=== PATIENT | male | born 1970 | race American Indian/Alaskan Native ===

== ENCOUNTER 2018-10-18 11:43 | Emergency (ER) | payer OTHER ==
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
[2018-10-18] MEDS ORDERED: CATAPRES PO ONE (12:58)
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
[2018-10-18 13:17] VITALS: BP 188/95
== END 2018-10-18 13:59 | disposition home or self-care (01) ==
LOC: ED 11:43
DX: S46.912A Strain of unspecified muscle, fascia and tendon at shoulder and upper arm level, left arm, initial encounter (principal); I10 Essential (primary) hypertension; E11.9 Type 2 diabetes mellitus without complications; F17.200 Nicotine dependence, unspecified, uncomplicated; F12.10 Cannabis abuse, uncomplicated; Z79.899 Other long term (current) drug therapy; V89.2XXA Person injured in unspecified motor-vehicle accident, traffic, initial encounter; Y93.89 Activity, other specified; Y92.410 Unspecified street and highway as the place of occurrence of the external cause; Y99.8 Other external cause status

== ENCOUNTER 2018-10-24 04:05 | Emergency (ER) | payer OTHER ==
[2018-10-24 04:50] LABS: Basophils # (Auto) 0.1 K/mm3 (0.0-0.1); Basophils % (Auto) 1.1 % (0.0-1.8); Eosinophils # (Auto) 0.1 K/mm3 (0.0-0.4); Eosinophils % (Auto) 0.7 % (0.0-4.3); Hematocrit 45.9 % (35.5-45.6); Hemoglobin 15.3 gm/dl (11.8-15.2); Lymphocytes # (Auto) 3.4 K/mm3 (1.2-5.4); Mean Corpuscular HGB Conc 33 % (32-34); Mean Corpuscular Volume 87 fl (84-94); Monocytes # (Auto) 0.7 K/mm3 (0.0-0.8); Monocytes % (Auto) 6.6 % (0.0-7.3); Platelet Count 204 K/mm3 (140-440); Red Blood Count 5.27 M/mm3 (3.65-5.03); Red Cell Distribution Width 13.9 % (13.2-15.2)
[2018-10-24 05:15] LABS: Alanine Aminotransferase 12 units/L (7-56); Albumin 4.2 g/dL (3.9-5); BUN/Creatinine Ratio 11; Blood Urea Nitrogen 9 mg/dL (9-20); Calcium 9.6 mg/dL (8.4-10.2); Hemolysis Index 11
[2018-10-24] MEDS ORDERED: ZOFRAN IV ONE (07:13)
[2018-10-24] MEDS ORDERED: APRESOLINE IV ONE (07:13)
[2018-10-24] MEDS ORDERED: NACL 0.9% 1000 ML 1,000 ML IV ONE (07:14)
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
[2018-10-24] MEDS ORDERED: D5/0.45NS 1,000 ML IV SCH (08:00)
[2018-10-24 08:10] VITALS: BP 167/93
== END 2018-10-24 08:31 | disposition home or self-care (01) ==
LOC: ED 04:05
DX: R11.2 Nausea with vomiting, unspecified (principal); I10 Essential (primary) hypertension; E11.9 Type 2 diabetes mellitus without complications; F17.200 Nicotine dependence, unspecified, uncomplicated; Z79.899 Other long term (current) drug therapy
CPT/HCPCS: 36415; 80053; 82550; 83690; 83735; 85025; 93005; 93010; 96361; 96374; 96375; 99283; J0360; J2405; J7030

== ENCOUNTER 2018-10-31 22:01 | Inpatient (IN) | payer SELFPAY ==
--- NOTE | 2018-10-31 22:17 | Emergency Department Report ---
Blank Doc - Documentation Documentation: This is a 48-year-old male that presents with dizziness and uncontrolled HTN. This initial assessment/diagnostic orders/clinical plan/treatment(s) is/are subject to change based on patient's health status, clinical progression and re- assessment by fellow clinical providers in the ED. Further treatment and workup at subsequent clinical providers discretion. Patient/guardians urged not to elope from the ED as their condition may be serious if not clinically assessed and managed. Initial orders include: 1- Patient sent to MAIN for further evaluation and treatment 2- labs 3- EKG
[2018-10-31 23:23] LABS: Basophils # (Auto) 0.1 K/mm3 (0.0-0.1); Basophils % (Auto) 0.7 % (0.0-1.8); Eosinophils % (Auto) 0.2 % (0.0-4.3); Hematocrit 47.6 % (35.5-45.6); Hemoglobin 16.3 gm/dl (11.8-15.2); Lymphocytes # (Auto) 2.9 K/mm3 (1.2-5.4); Lymphocytes % (Auto) 28.8 % (13.4-35.0); Mean Corpuscular HGB Conc 34 % (32-34); Mean Corpuscular Volume 88 fl (84-94); Monocytes # (Auto) 0.7 K/mm3 (0.0-0.8); Monocytes % (Auto) 7.1 % (0.0-7.3); Platelet Count 228 K/mm3 (140-440); Red Blood Count 5.42 M/mm3 (3.65-5.03)
--- NOTE | 2018-10-31 23:34 | Emergency Department Report ---
ED Dizziness HPI - General Chief Complaint: Dizziness Stated Complaint: ELEVATED BLOOD PRESSURE Time Seen by Provider: 10/31/18 22:16 Source: patient, family Mode of arrival: Ambulatory Limitations: No Limitations - History of Present Illness Initial Comments: Patient is a 48-year-old male that presents to emergency with complaints of dizziness and weakness and unsteady gait and elevated blood pressure. Patient states he has been here twice in the past 2 weeks and his blood pressure is just not going down. Patient is currently on Norvasc 5 mg and hydrochlorothiazide 12.5 mg. Patient states his blood pressure comes down the dizziness gets Worse. Patient denies chest pain or shortness of breath. Patient denies blurry vision. Patient states that his gait is unsteady and ease literally having to hold onto the wall in order to walk. Patient states his legs feel weak. MD Complaint: dizziness, lightheadedness, near syncope, difficulty walking -: Sudden Description: sense of movement, "room spinning", lightheadedness, off-balance, difficulty walking, near-syncope History of Same: Yes History of Trauma: No Severity: severe Improves With: rest Worsens With: movement, position, exertion Associated Symptoms: chest pain. denies: ataxia, confusion, cough, diaphoresis, fever/chills, loss of appetite, malaise, rash, seizure, shortness of breath, syncope, weakness - Related Data Previous Rx's Medication Instructions Recorded Last Taken Type Amlodipine Besylate [Norvasc] 5 mg PO DAILY #30 tablet 10/18/18 Unknown Rx hydroCHLOROthiazide [HCTZ] 12.5 mg PO QDAY #30 capsule 10/18/18 Unknown Rx Ondansetron [Zofran Odt] 4 mg PO Q8HR PRN #20 tab.rapdis 10/24/18 Unknown Rx Promethazine [Phenergan SUPPOS] 50 mg CO Q6H PRN #30 supp.rect 10/24/18 Unknown Rx Allergies Allergy/AdvReac Type Severity Reaction Status Date / Time No Known Allergies Allergy Verified 03/30/18 10:42 ED Review of Systems ROS: Stated complaint: ELEVATED BLOOD PRESSURE Other details as noted in HPI Constitutional: weakness. denies: chills, fever Eyes: denies: eye pain, eye discharge, vision change ENT: denies: ear pain, throat pain Respiratory: denies: cough, shortness of breath, wheezing Cardiovascular: denies: chest pain, palpitations Endocrine: no symptoms reported Gastrointestinal: denies: abdominal pain, nausea, diarrhea Genitourinary: denies: urgency, dysuria Musculoskeletal: denies: back pain, joint swelling, arthralgia Skin: denies: rash, lesions Neurological: weakness. 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,sees a neurologist - Surgical History Past Surgical History?: No - Family History Family history: no significant - Social History Smoking Status: Current Every Day Smoker Substance Use Type: Alcohol, Cocaine, Marijuana - Medications Home Medications: Home Medications Medication Instructions Recorded Confirmed Last Taken Type Amlodipine Besylate [Norvasc] 5 mg PO DAILY #30 tablet 10/18/18 11/01/18 Unknown Rx hydroCHLOROthiazide [HCTZ] 12.5 mg PO QDAY #30 capsule 10/18/18 11/01/18 Unknown Rx Ondansetron [Zofran Odt] 4 mg PO Q8HR PRN #20 tab.rapdis 10/24/18 11/01/18 Unknown Rx Promethazine [Phenergan SUPPOS] 50 mg CO Q6H PRN #30 supp.rect 10/24/18 11/01/18 Unknown Rx ED Physical Exam - General Limitations: No Limitations General appearance: alert, in no apparent distress - Head Head exam: Present: atraumatic, normocephalic - Eye Eye exam: Present: normal appearance, EOMI, nystagmus - ENT ENT exam: Present: mucous membranes moist - Neck Neck exam: Present: normal inspection. Absent: tenderness, meningismus - Respiratory Respiratory exam: Present: normal lung sounds bilaterally. Absent: respiratory distress - Cardiovascular Cardiovascular Exam: Present: regular rate, normal rhythm. Absent: systolic murmur, diastolic murmur, rubs, gallop - GI/Abdominal GI/Abdominal exam: Present: soft, normal bowel sounds - Rectal Rectal exam: Present: deferred - Extremities Exam Extremities exam: Present: normal inspection - Back Exam Back exam: Present: normal inspection - Neurological Exam Neurological exam: Present: alert, oriented X3 - Psychiatric Psychiatric exam: Present: normal affect, normal mood - Skin Skin exam: Present: warm, dry, intact, normal color. Absent: rash ED Course Vital Signs 10/31/18 10/31/18 10/31/18 22:06 23:31 23:36 Temperature 98.1 F 98.2 F Pulse Rate 91 H 87 83 Respiratory 22 21 18 Rate Blood Pressure 199/120 177/95 Blood Pressure 177/95 [Left] O2 Sat by Pulse 99 98 97 Oximetry 11/01/18 11/01/18 11/01/18 00:00 00:31 01:01 Temperature Pulse Rate 81 94 H 92 H Respiratory 18 19 16 Rate Blood Pressure 178/87 178/87 178/87 Blood Pressure [Left] O2 Sat by Pulse 95 98 98 Oximetry 11/01/18 11/01/18 11/01/18 01:30 02:14 02:30 Temperature Pulse Rate 77 73 87 Respiratory 16 17 16 Rate Blood Pressure 180/89 165/93 Blood Pressure [Left] O2 Sat by Pulse 99 99 100 Oximetry 11/01/18 11/01/18 11/01/18 03:00 03:30 04:00 Temperature Pulse Rate 84 87 Respiratory 14 17 Rate Blood Pressure 169/89 155/96 160/103 Blood Pressure [Left] O2 Sat by Pulse 96 97 97 Oximetry 11/01/18 11/01/18 11/01/18 04:50 04:51 05:00 Temperature Pulse Rate 85 91 H 92 H Respiratory 16 19 Rate Blood Pressure 170/101 170/101 147/96 Blood Pressure [Left] O2 Sat by Pulse 99 Oximetry 11/01/18 11/01/18 05:11 05:21 Temperature Pulse Rate 85 Respiratory 16 15 Rate Blood Pressure 147/96 147/96 Blood Pressure [Left] O2 Sat by Pulse 99 99 Oximetry - Reevaluation(s) Reevaluation #1: Discussed all results with patient. Patient will be admitted to the hospitalist service. Patient agrees to plan of care. 11/01/18 00:49 - Consultations Consultation #1: Discussed case with neurologist. Neurologist recommends admission and MRI/MRA in the morning for the patient's dizziness to rule out any neurologic problems 11/01/18 00:48 11/01/18 01:19 Consultation #2: Hospitalist consulted for admission. Hospitalist to admit patient. Hospitalist to assume care patient. 11/01/18 01:15 ED Medical Decision Making - Lab Data Result diagrams: 10/31/18 22:58 10/31/18 22:58 - EKG Data -: EKG Interpreted by Me EKG shows normal: sinus rhythm, axis, intervals, QRS complexes, ST-T waves Rate: tachycardia - EKG Data Interpretation: [facility] - Radiology Data Radiology results: report reviewed CT HEAD WITHOUT CONTRAST INDICATION: dizziness. TECHNIQUE: All CT scans at this location are performed using CT dose reduction for ALARA by means of automated exposure control. COMPARISON: None available. FINDINGS: HEMORRHAGE: None. EXTRA-AXIAL SPACES: Normal in size and morphology for the patient's age. VENTRICULAR SYSTEM: Normal in size and morphology for the patient's age. BRAIN PARENCHYMA: No acute findings. MIDLINE SHIFT OR HERNIATION: None. ORBITS: Normal as visualized. SOFT TISSUES OF HEAD: Normal. CALVARIUM: Normal. VISUALIZED PARANASAL SINUSES AND MASTOID AIR CELLS: Clear. ADDITIONAL FINDINGS: None. IMPRESSION: 1. No acute intracranial abnormality. - Medical Decision Making Patient is a 48-year-old emergency room with complaints of dizziness, unsteady gait and weakness and elevated blood pressure. Patient admitted to the hospital service. Patient's head CT negative. Patient's labs unremarkable except for elevated blood glucose. Patient placed on a insulin drip due to the hyponatremia and elevated blood glucose. Patient given saline. Patient had abnormal neurologic finding of nystagmus and neurology consultation done in ER. - Differential Diagnosis dizziness. unsteady gait. Hypertension. Critical Care Time: Yes Critical care attestation.: If time is entered above; I have spent that time in minutes in the direct care of this critically ill patient, excluding procedure time. Critical Care Time: 45 minutes ED Disposition Clinical Impression: Weakness, Dizziness, Hyperglycemia, Noncompliance, Unsteady gait, Hyponatremia, Nystagmus Hypertension Qualifiers: Hypertension type: essential hypertension Qualified Code(s): I10 - Essential (primary) hypertension Disposition: OP ADMIT IP TO THIS HOSP Is pt being admited?: No Does the pt Need Aspirin: No Condition: Fair Time of Disposition: 01:15 - Assessment Assessment Interval: Baseline - Level of Consciousness 1a. Level of Consciousness: alert/keenly responsive - LOC Questions 1b. LOC Questions: answers both correctly - LOC Command 1c. LOC Commands: performs tasks correctly - Best Gaze 2. Best Gaze: normal - Visual 3. Visual: no visual loss - Facial Palsy 4. Facial Palsy: normal symmetrical movement - Motor Arm 5a. Motor Arm Left: no drift 5b. Motor Arm Right: no drift - Motor Leg 6a. Motor Leg Left: no drift 6b. Motor Leg Right: no drift - Limb Ataxia 7. Limb Ataxia: absent - Sensory 8. Sensory: normal - Best Language 9. Best Language: no aphasia - Dysarthria 10. Dysarthria: normal - Extinction and Inattention 11. Extinction/Inattention: no abnormality - Scoring Total Score: 0 Stroke Severity: No Stroke Symptoms
[2018-10-31 23:41] LABS: BUN/Creatinine Ratio 12; Blood Urea Nitrogen 14 mg/dL (9-20); Calcium 9.5 mg/dL (8.4-10.2); Hemolysis Index 11
[2018-11-01] MEDS ORDERED: D50W (25GM) Syringe IV PRN ×2 (00:49→02:58)
[2018-11-01] MEDS ORDERED: NACL 0.9% 1000 ML 1,000 ML IV ONE ×2 (00:49)
[2018-11-01] MEDS ORDERED: HumuLIN R 100 UNITS in NACL 0.9% 99 ML IV SCH (01:00)
[2018-11-01] MEDS ORDERED: NACL 0.9% 1000 ML 1,000 ML IV SCH (02:00)
--- NOTE | 2018-11-01 02:30 | Cat Scan Report ---
CT HEAD WITHOUT CONTRAST INDICATION: dizziness. TECHNIQUE: All CT scans at this location are performed using CT dose reduction for ALARA by means of automated e xposure control. COMPARISON: None available. FINDINGS: HEMORRHAGE: None. EXTRA-AXIAL SPACES: Normal in size and morphology for the patient's age. VENTRICULAR SYSTEM: Normal in size and morphology for the patient's age. BRAIN PARENCHYMA: No acute findings. MIDLINE SHIFT OR HERNIATION: None. ORBITS: Normal as visualized. SOFT TISSUES OF HEAD: Normal. CALVARIUM: Normal. VISUALIZED PARANASAL SINUSES AND MASTOID AIR CELLS: Clear. ADDITIONAL FINDINGS: None. IMPRESSION: 1. No acute intracranial abnormality. Signer Name: Kory Stuart MD Signed: 11/01/2018 2:26 AM Workstation Name: [id number]
[2018-11-01] MEDS: NACL 0.9% 1000 ML 1,000 ML IV SCH ×3 (03:50→23:10)
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
[2018-11-01] MEDS: APRESOLINE IV PRN ×4 (04:50→22:29)
[2018-11-01] MEDS ORDERED: PHENERGAN PR PRN (09:16)
[2018-11-01] MEDS ORDERED: ASPIRIN PO SCH (10:00)
[2018-11-01] MEDS: HumuLIN R SUB-Q SCH ×4 (10:15→22:31)
--- NOTE | 2018-11-01 10:20 | Vascular Lab Report ---
BILATERAL CAROTID DOPPLER ULTRASOUND INDICATION : ATAXIA AND DIZZINESS TECHNIQUE: Grayscale and color Doppler imaging performed through the neck. COMPARISON: None FINDINGS: Right: There is mild smooth partially calcified plaque in the right carotid bulb.. Peak systolic ve locity in the CCA is 87 cm/s with end-diastolic velocity of 81 cm/s. Peak systolic velocity in the pr oximal ICA is 76 cm/s with end-diastolic velocity of 33 cm/s. ICA to CCA ratio is less than 2. There is antegrade flow in the ECA and the vertebral artery. Left: There is mild partially calcified plaque in the left carotid bulb. Peak systolic velocity in th e CCA is 90 cm/s with end-diastolic velocity of 86 cm/s. Peak systolic velocity in the proximal ICA i s 70 cm/s with end-diastolic velocity of 26 cm/s. ICA to CCA ratio is less than 2. There is antegrade flow in the ECA and the vertebral artery. IMPRESSION: No hemodynamically significant stenosis by NASCET criteria. Signer Name: Francisco Aquino Jr, MD Signed: 11/01/2018 10:16 AM Workstation Name: [id number]
--- NOTE | 2018-11-01 12:46 | Magnetic Resonance Report ---
MRI BRAIN 11/01/2018 INDICATION / CLINICAL INFORMATION: ATAXIA AND DIZINESS. TECHNIQUE: Multiplanar, multisequence MR images of the brain were obtained. COMPARISON: None available. FINDINGS: BRAIN / INTRACRANIAL CONTENTS: Unenhanced MR images of the brain were obtained. There are a few punctate foci of increased diffusion weighted signal present in the right inferior ce rebellar cortex, with some subtle associated decreased ADC signal and visible associated signal pereira e on the FLAIR sequence. Appearance suggests small foci of recent or acute ischemic change in part of the distribution of the right posterior inferior cerebellar artery. No other foci or areas of abnormal diffusion weighted signal are present. Ventricles and sulci are normal in size and shape. There is no evidence of hemorrhage or mass. There are no abnormal extra-axial fluid collections. EXTRACRANIAL: Unremarkable CRANIOCERVICAL JUNCTION: No significant abnormality. VASCULAR FLOW-VOIDS: No significant abnormality. IMPRESSION: Patchy acute/recent ischemic changes in right inferior cerebellar cortex. Otherwise negative exam. Signer Name: Bryn Mcclendon MD Signed: 11/01/2018 12:42 PM Workstation Name: [id number]
--- NOTE | 2018-11-01 12:51 | Magnetic Resonance Report ---
MRA NECK 11/01/2018 INDICATION / CLINICAL INFORMATION: ATAXIA AND DIZZINESS. TECHNIQUE: Routine unenhanced MRA of the neck are performed. 3-D/MIP reformats postprocessed. Percentage stenosi s is determined by direct quantitative measurements of distal internal carotid artery diameter compar ed with normal reference segments or by criteria similar to NASCET where applicable. COMPARISON: None available. FINDINGS: Unenhanced MR angiographic images of the neck were obtained. 3D/MIP reformats were post-processed. Carotid bifurcations: Common carotid arteries: No significant abnormality. Cervical internal carotid arteries: No significant abnormality. Cervical vertebral arteries: The left vertebral artery is relatively hypoplastic, consistent with nor mal anatomic variation. Visible aortic arch: Not included as part of this exam. IMPRESSION: No significant abnormality. Signer Name: Bryn Mcclendon MD Signed: 11/01/2018 12:47 PM Workstation Name: [id number]
--- NOTE | 2018-11-01 12:54 | Magnetic Resonance Report ---
MRA HEAD 11/01/2018 INDICATION / CLINICAL INFORMATION: ATAXIA AND DIZZINESS. TECHNIQUE: Routine MRA of the head is performed. 3-D/MIP reformats postprocessed. COMPARISON: None available. FINDINGS: MRA HEAD: Intracranial internal carotid arteries: Atherosclerotic type irregularity is present in the distal in ternal carotid arteries at the level of the cavernous sinuses bilaterally. Anterior cerebral arteries: No significant abnormality. Middle cerebral arteries: There is some irregularity on the reconstructed images of the right middle cerebral artery trifurcation, which I suspect is artifactual. Intracranial vertebral arteries: The left distal vertebral artery is relatively hypoplastic and appea rs to end at approximately the level of the PICA origin. Basilar artery: No significant abnormality. Posterior cerebral arteries: Atherosclerotic type irregularity and narrowing is present in the proxim al aspect of the posterior cerebral arteries bilaterally. IMPRESSION: There is some evidence of intracranial atherosclerotic changes as described above. Antonieta james on details of the clinical circumstances, further evaluation with contrast-enhanced CT angiograp hy may be of benefit. Signer Name: Bryn Mcclendon MD Signed: 11/01/2018 12:50 PM Workstation Name: [id number]
[2018-11-01] MEDS: LANTUS SUB-Q SCH ×2 (12:55→22:29)
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
[2018-11-01] MEDS: TYLENOL PO PRN (17:48)
[2018-11-01] MEDS: PLAVIX PO SCH (17:49)
[2018-11-02] MEDS: TYLENOL PO PRN (00:12)
[2018-11-02] MEDS: APRESOLINE IV PRN ×4 (06:01→23:31)
[2018-11-02 06:12] LABS: Chol/HDL Ratio 4.11 %
[2018-11-02] MEDS: HumuLIN R SUB-Q SCH ×4 (07:27→21:54)
[2018-11-02] MEDS: PLAVIX PO SCH (10:25)
[2018-11-02] MEDS: BABY ASPIRIN PO SCH (10:25)
[2018-11-02] MEDS: LANTUS SUB-Q SCH ×2 (10:28→21:55)
[2018-11-02] MEDS: NACL 0.9% 1000 ML 1,000 ML IV SCH (10:28)
[2018-11-02] MEDS ORDERED: NORMODYNE IV ONE ×2 (13:47→17:00)
[2018-11-02] MEDS ORDERED: SENOKOT S PO PRN (15:50)
[2018-11-02] MEDS ORDERED: MIRALAX 3350 PO PRN (15:50)
--- NOTE | 2018-11-02 15:50 | Progress Note ---
Assessment and Plan Assessment and plan: 48-year-old man who presented with elevated blood pressure and dizziness, he also complained of unsteady gaits, his blood pressure was not being controlled despite using his blood pressure meds at home, he thinks that one of his legs felt weak. Acute /subacute cerebella CVA Neurology input appreciated, optimize meds for secondary prevention Patient out of the window for permissive hypertension, optimize blood pressure meds goal is to reduce blood pressure by 30% -Awaiting CT angiogram head and neck as recommended by neurologist Hypertensive urgency Blood pressure management as above Type 2 diabetes with persistent hyperglycemia A1c 9.4, optimize insulins, goal glucose is 140-180 Cocaine and marijuana abuse Counseled about tobacco cessation greater than 10 minutes Preventive health management counseling performed 17 minutes X Ambulatory dysfunction PT/OT, plan to discharge her home PT DVT prophylaxis ME: SCDs History Interval history: Continues to complain of unsteady gait Review of systems Constitutional: No fevers, no malaise, no joint pains CVS: No chest pain, no orthopnea, no dyspnea on exertion, no pedal edema GI: No abdominal pain, no diarrhea, no vomiting, no constipation Respiratory: no wheezing, no coughing Hospitalist Physical - Physical exam Narrative exam: General.: Appears well, no distress, nontoxic HEENT: Moist mucous membranes, extraocular muscles intact, no lymphadenopathy Neck: supple Cardiac: S1-S2 heard Lungs: clear to auscultation bilaterally Abdomen: soft , nontender, nondistended, bowel sounds positive Extremities: no edema clubbing or cyanosis Skin: no rash or lesions Neurologic: no gross focal deficits, unsteady gait Psych: calm, and cooperative - Constitutional Vitals: Temp Pulse Resp BP Pulse Ox 98.0 F 104 H 20 187/99 100 11/02/18 12:20 11/02/18 12:20 11/02/18 12:20 11/02/18 12:20 11/02/18 12:20 Results - Labs CBC & Chem 7: 10/31/18 22:58 10/31/18 22:58 Labs: Laboratory Last Values WBC 9.9 K/mm3 (4.5-11.0) 10/31/18 22:58 RBC 5.42 M/mm3 (3.65-5.03) H 10/31/18 22:58 Hgb 16.3 gm/dl (11.8-15.2) H 10/31/18 22:58 Hct 47.6 % (35.5-45.6) H 10/31/18 22:58 MCV 88 fl (84-94) 10/31/18 22:58 MCH 30 pg (28-32) 10/31/18 22:58 MCHC 34 % (32-34) 10/31/18 22:58 RDW 14.0 % (13.2-15.2) 10/31/18 22:58 Plt Count 228 K/mm3 (140-440) 10/31/18 22:58 Lymph % (Auto) 28.8 % (13.4-35.0) 10/31/18 22:58 Haakon % (Auto) 7.1 % (0.0-7.3) 10/31/18 22:58 Eos % (Auto) 0.2 % (0.0-4.3) 10/31/18 22:58 Baso % (Auto) 0.7 % (0.0-1.8) 10/31/18 22:58 Lymph # 2.9 K/mm3 (1.2-5.4) 10/31/18 22:58 Haakon # 0.7 K/mm3 (0.0-0.8) 10/31/18 22:58 Eos # 0.0 K/mm3 (0.0-0.4) 10/31/18 22:58 Baso # 0.1 K/mm3 (0.0-0.1) 10/31/18 22:58 Seg Neutrophils % 63.2 % (40.0-70.0) 10/31/18 22:58 Seg Neutrophils # 6.3 K/mm3 (1.8-7.7) 10/31/18 22:58 Sodium 128 mmol/L (137-145) L 10/31/18 22:58 Potassium 4.7 mmol/L (3.6-5.0) 10/31/18 22:58 Chloride 89.2 mmol/L (98-107) L 10/31/18 22:58 Carbon Dioxide 22 mmol/L (22-30) 10/31/18 22:58 22 mmol/L 10/31/18 22:58 BUN 14 mg/dL (9-20) 10/31/18 22:58 1.2 mg/dL (0.8-1.5) 10/31/18 22:58 Estimated GFR > 60 ml/min 10/31/18 22:58 12 % 10/31/18 22:58 Glucose 660 mg/dL (75-100) H* 10/31/18 22:58 POC Glucose 227 (70-105) H 11/02/18 12:10 9.4 % (4-6) H 11/02/18 04:41 Calcium 9.5 mg/dL (8.4-10.2) 10/31/18 22:58 Triglycerides 127 mg/dL (2-149) 11/02/18 04:41 Cholesterol 177 mg/dL (50-199) 11/02/18 04:41 120 mg/dL (50-130) 11/02/18 04:41 43 mg/dL (40-59) 11/02/18 04:41 4.11 % 11/02/18 04:41 Active Medications - Current Medications Current Medications: Generic Name Dose Route Start Last Admin Trade Name Freq PRN Reason Stop Dose Admin Acetaminophen 650 mg 11/01/18 17:45 11/02/18 00:12 Tylenol PO 650 mg Q6H PRN Administration Pain, Mild (1-3) Aspirin 81 mg 11/02/18 10:00 11/02/18 10:25 Baby Aspirin PO 81 mg QDAY ATILIO Administration Atorvastatin Calcium 40 mg 11/01/18 22:00 11/01/18 22:29 Lipitor PO 40 mg QHS ATILIO Administration Clopidogrel Bisulfate 75 mg 11/01/18 17:00 11/02/18 10:25 Plavix PO 75 mg QDAY ATILIO Administration Dextrose 50 ml 11/01/18 02:58 D50w (25gm) Syringe IV PRN PRN Hypoglycemia Hydralazine HCl 10 mg 11/01/18 03:00 11/02/18 13:53 Apresoline IV 10 mg Q4H PRN Administration Blood Pressure Sodium Chloride 1,000 mls @ 125 mls/hr 11/01/18 04:00 11/02/18 10:28 Nacl 0.9% 1000 Ml IV 125 mls/hr DIRECT ATILIO Administration Insulin Glargine 10 units 11/01/18 12:30 11/02/18 10:28 Lantus SUB-Q 10 units BID ATILIO Administration Insulin Human Regular 0 units 07/11/19 07:30 11/02/18 15:19 Humulin R SUB-Q 3 units AC ATILIO Administration Protocol Insulin Human Regular 0 units 11/01/18 22:00 11/01/18 22:31 Humulin R SUB-Q 3 units QHS ATILIO Administration Protocol Promethazine HCl 50 mg 11/01/18 09:16 Phenergan [place] Q6H PRN Nausea Sodium Chloride 10 ml 11/01/18 16:13 Sodium Chloride Flush Syringe 10 Ml IV PRN PRN LINE FLUSH
[2018-11-02] MEDS: SODIUM CHLORIDE FLUSH SYRINGE 10 ML IV PRN ×2 (17:07→21:54)
--- NOTE | 2018-11-02 17:45 | Progress Note ---
Assessment and Plan Patient is a 48-year-old right-handed man with a history of hypertension, diabetes, history of substance abuse including cocaine and marijuana, who p/w 2- week history of imbalanced gait. He has been found to have elevated BP and glucose. According to patient's clinical findings, the patient had a right cerebellar stroke, as has been noted on MRI. The etiology of stroke is not entirely clear at this point patient has list factors, including hypertension and diabetes was uncontrolled, as well as smoking, and cocaine and marijuana use . Plan: 1. Acute/subacute cerebellar ischemic stroke: - MRI brain revealed Rt. cerebellar small strokes. - MRA brain showed possible regions of atherosclerosis - Will check CTA head and neck for further investigation of cerebrovascular disease. CTA pending. Further clinical decisions to be made based once CTA compelte. - Will check echo with bubble study. Echo pending. - LDL 120. HbA1C 9.4. Secondary prevention: - Cont. ASA 81mg daily, and Plavix 75mg daily. Will continue dual anti-platelet therapy with ASA and plavix for 90 days, after which plavix can be stopped. Discussed risks/benefits of DAPT with patient and , and they have agreed to starting these medications. - Cont. Atorvastatin 40mg daily. Discussed risks/benefits of statin therapy, and patient agreed to take statin at this time. - Telemetry monitoring while in house. - Physical therapy and occupational therapy - Speech therapy not indicated as no significant deficits that would affect swallowing at this point. - DVT PPx: recommend lovenox. 2. HTN: - Recommend target normotension. 3. DM: - Recommend target normoglycemia. 4. Cocaine and marijuana abuse: - Counselled patient regarding stopping smoking, as well as stopping cocaine and marijuana use. - Discussed with patient regarding having follow up with neurologist once discharged. - Will sign off, as I will not be covering patients over the weekend. Recommend for on-call neurologist to be consulted over the weekend for further management. - Viktor Carr MD Neurology - Patient Problems (1) Stroke Current Visit: Yes Status: Acute (2) Hyperglycemia Current Visit: Yes Status: Acute (3) Hypertension Current Visit: Yes Status: Acute Qualifiers: Hypertension type: essential hypertension Qualified Code(s): I10 - Essential (primary) hypertension (4) Unsteady gait Current Visit: Yes Status: Acute Subjective Date of service: 11/02/18 Principal diagnosis: Stroke Interval history: No acute events overnight. Patient feels that imbalance is slightly improved today. Objective - Vital Sign Vital Signs - 12hr 11/02/18 11/02/18 11/02/18 06:01 07:54 12:20 Temperature 98.6 F 98.0 F Pulse Rate 93 H 85 104 H Respiratory 18 20 Rate Blood Pressure 162/98 166/93 187/99 O2 Sat by Pulse 100 100 Oximetry 11/02/18 16:00 Temperature 98.6 F Pulse Rate 110 H Respiratory 20 Rate Blood Pressure 148/88 O2 Sat by Pulse 99 Oximetry - General Apperance Constitutional: comfortable - EENT EENT: ATNC, PERRL, mucous membranes moist, hearing intact, vision intact - Respiratory Respiratory: lungs clear, normal breath sounds, no respiratory distress - Cardiovascular Cardiovascular: regular rate, normal S1, normal S2 Extremities: no peripheral edema bilat, no clubbing, cyanosis - Gastrointestinal Gastrointestinal: normoactive bowel sounds, soft, non-tender - Integumentary Integumentary: normal - Neurologic Cranial nerve examination: PERRL, EOMI, VFF, V1/V2/V3 grossly intact, face symmetric, tongue midline, intact shoulder shrug Speech examination: intact Detailed motor examination: full strength in all luna Motor examination - right side: 5/5: biceps, triceps, host/hostess restaurant, hip flexors, knee extensors, dorsiflexion, plantarflexion Motor examination - left side: 5/5: biceps, triceps, host/hostess restaurant, hip flexors, knee extensors, dorsiflexion, plantarflexion Detailed sensory examination: intact, light touch Reflex and gait examination: other (mild imbalanced gait) Reflexes: 2+: ankle, bicep, knee, tricep Cerebellar examination: other (b/l intac to to FTN and HTS) - Musculoskeletal Musculoskeletal: no fluid collection, no pain, normal range of motion - Psychiatric Psychiatric: mood/affect appropriate, cooperative - Laboratory Findings CBC and BMP: 10/31/18 22:58 10/31/18 22:58 Abnormal Lab Findings: Abnormal Labs 10/31/18 10/31/18 11/01/18 22:58 22:58 01:34 RBC 5.42 H Hgb 16.3 H Hct 47.6 H Sodium 128 L Chloride 89.2 L Glucose 660 H* POC Glucose > 500 H Hemoglobin A1c 11/01/18 11/01/18 11/01/18 02:36 03:59 07:40 RBC Hgb Hct Sodium Chloride Glucose POC Glucose 378 H 246 H 198 H Hemoglobin A1c 11/01/18 11/01/18 11/01/18 12:56 17:14 20:55 RBC Hgb Hct Sodium Chloride Glucose POC Glucose 282 H 279 H 222 H Hemoglobin A1c 11/02/18 11/02/18 11/02/18 04:41 07:22 12:10 RBC Hgb Hct Sodium Chloride Glucose POC Glucose 170 H 227 H Hemoglobin A1c 9.4 H 11/02/18 16:05 RBC Hgb Hct Sodium Chloride Glucose POC Glucose 248 H Hemoglobin A1c
--- NOTE | 2018-11-02 21:53 | Cat Scan Report ---
CT ANGIOGRAM NECK 11/02/2018 HISTORY: Headache. Dizziness. FINDINGS: Contrast-enhanced CT angiographic images of the neck were obtained. In addition to the axia l images, sagittal and coronal reformatted images were obtained. In addition, 3 plane MIP reconstruct ions were produced. At the right bifurcation, some partially calcified atherosclerotic plaque is present. There is 10-20% narrowing in the proximal right internal carotid artery. At the left bifurcation, there is a similar pattern of atherosclerotic plaque, associated with tendon 20% narrowing. Vertebral arteries are unremarkable. 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 The aortic arch has a normal CT appearance. Soft tissue structures in the neck are unremarkable. IMPRESSION: No evidence of significant or measurable carotid bifurcation stenosis. NASCET like criteria were used in this evaluation. All CT scans at this location are performed using dose reduction to ALARA by means of automated expos ure control. Signer Name: Bryn Mcclendon MD Signed: 11/02/2018 9:48 PM Workstation Name: [id number]
--- NOTE | 2018-11-02 21:56 | Cat Scan Report ---
CT ANGIOGRAM BRAIN 11/02/2018 HISTORY: Dizziness. FINDINGS: Contrast-enhanced CT angiographic images of the intracranial circulation were obtained. In addition to the axial images, sagittal and coronal reformatted images were obtained. In addition, 3 p simone MIP reconstructions were produced. There is prominent atherosclerotic vascular calcification irregularity along the course of the distal internal carotid arteries at the level of the cavernous sinuses. Segmental stenoses of this portion of the internal carotid arteries is present bilaterally, and appears to be slightly more pronounced s ignificant on the left than on the right. Mild atherosclerotic irregularity is noted along the course of the cerebral arteries bilaterally. The left distal vertebral artery is hypoplastic and appears to end at the level of PICA. The right di stal vertebral artery has atherosclerotic type irregularity at the near the vertebrobasilar junction, with focal moderate stenoses. The basilar artery itself is relatively hypoplastic on a developmental basis. Dural venous structures are well opacified. IMPRESSION: Prominent intracranial atherosclerotic changes, with prominent stenoses of the distal int ernal carotid arteries in the cavernous sinus level. All CT scans at this location are performed using dose reduction to ALARA by means of automated expos ure control. Signer Name: Bryn Mcclendon MD Signed: 11/02/2018 9:51 PM Workstation Name: [id number]
[2018-11-03] MEDS: TYLENOL PO PRN ×2 (04:35→14:30)
[2018-11-03] MEDS: HumuLIN R SUB-Q SCH ×4 (08:30→21:57)
[2018-11-03] MEDS: PLAVIX PO SCH (10:16)
[2018-11-03] MEDS: BABY ASPIRIN PO SCH (10:16)
[2018-11-03] MEDS: APRESOLINE IV PRN ×3 (10:17→22:02)
--- NOTE | 2018-11-03 15:11 | Progress Note ---
Assessment and Plan Assessment and plan: 48-year-old man who presented with elevated blood pressure and dizziness, he also complained of unsteady gaits, his blood pressure was not being controlled despite using his blood pressure meds at home, he thinks that one of his legs felt weak. Acute /subacute cerebella CVA Neurology input appreciated, optimize meds for secondary prevention -CT angiogram shows ICA stenosis, vascular surgery consult, echo shows slightly reduced EF of 45%, but no septal defect and patient will need outpatient follow- up with cardiology, as will need a 30 day monitor her neurologist - Hypertensive urgency Optimize BP meds Type 2 diabetes with persistent hyperglycemia A1c 9.4, optimize insulins, goal glucose is 140-180 Cocaine and marijuana abuse Counseled about tobacco cessation greater than 10 minutes Preventive health management counseling performed 17 minutes X Ambulatory dysfunction PT/OT, plan to discharge her home PT DVT prophylaxis ME: SCDs History Interval history: Continues to complain of unsteady gait Review of systems Constitutional: No fevers, no malaise, no joint pains CVS: No chest pain, no orthopnea, no dyspnea on exertion, no pedal edema GI: No abdominal pain, no diarrhea, no vomiting, no constipation Respiratory: no wheezing, no coughing Hospitalist Physical - Physical exam Narrative exam: General.: Appears well, no distress, nontoxic HEENT: Moist mucous membranes, extraocular muscles intact, no lymphadenopathy Neck: supple Cardiac: S1-S2 heard Lungs: clear to auscultation bilaterally Abdomen: soft , nontender, nondistended, bowel sounds positive Extremities: no edema clubbing or cyanosis Skin: no rash or lesions Neurologic: no gross focal deficits, unsteady gait Psych: calm, and cooperative - Constitutional Vitals: Temp Pulse Resp BP Pulse Ox 98.4 F 103 H 18 180/95 100 11/03/18 12:27 11/03/18 13:18 11/03/18 12:27 11/03/18 13:18 11/03/18 12:27 Results - Labs CBC & Chem 7: 10/31/18 22:58 10/31/18 22:58 Labs: Laboratory Last Values WBC 9.9 K/mm3 (4.5-11.0) 10/31/18 22:58 RBC 5.42 M/mm3 (3.65-5.03) H 10/31/18 22:58 Hgb 16.3 gm/dl (11.8-15.2) H 10/31/18 22:58 Hct 47.6 % (35.5-45.6) H 10/31/18 22:58 MCV 88 fl (84-94) 10/31/18 22:58 MCH 30 pg (28-32) 10/31/18 22:58 MCHC 34 % (32-34) 10/31/18 22:58 RDW 14.0 % (13.2-15.2) 10/31/18 22:58 Plt Count 228 K/mm3 (140-440) 10/31/18 22:58 Lymph % (Auto) 28.8 % (13.4-35.0) 10/31/18 22:58 [place] % (Auto) 7.1 % (0.0-7.3) 10/31/18 22:58 Eos % (Auto) 0.2 % (0.0-4.3) 10/31/18 22:58 Baso % (Auto) 0.7 % (0.0-1.8) 10/31/18 22:58 Lymph # 2.9 K/mm3 (1.2-5.4) 10/31/18 22:58 [place] # 0.7 K/mm3 (0.0-0.8) 10/31/18 22:58 Eos # 0.0 K/mm3 (0.0-0.4) 10/31/18 22:58 Baso # 0.1 K/mm3 (0.0-0.1) 10/31/18 22:58 Seg Neutrophils % 63.2 % (40.0-70.0) 10/31/18 22:58 Seg Neutrophils # 6.3 K/mm3 (1.8-7.7) 10/31/18 22:58 Sodium 128 mmol/L (137-145) L 10/31/18 22:58 Potassium 4.7 mmol/L (3.6-5.0) 10/31/18 22:58 Chloride 89.2 mmol/L (98-107) L 10/31/18 22:58 Carbon Dioxide 22 mmol/L (22-30) 10/31/18 22:58 22 mmol/L 10/31/18 22:58 BUN 14 mg/dL (9-20) 10/31/18 22:58 1.2 mg/dL (0.8-1.5) 10/31/18 22:58 Estimated GFR > 60 ml/min 10/31/18 22:58 12 % 10/31/18 22:58 Glucose 660 mg/dL (75-100) H* 10/31/18 22:58 POC Glucose 180 (70-105) H 11/03/18 12:32 9.4 % (4-6) H 11/02/18 04:41 Calcium 9.5 mg/dL (8.4-10.2) 10/31/18 22:58 Triglycerides 127 mg/dL (2-149) 11/02/18 04:41 Cholesterol 177 mg/dL (50-199) 11/02/18 04:41 120 mg/dL (50-130) 11/02/18 04:41 43 mg/dL (40-59) 11/02/18 04:41 4.11 % 11/02/18 04:41 Active Medications - Current Medications Current Medications: Generic Name Dose Route Start Last Admin Trade Name Freq PRN Reason Stop Dose Admin Acetaminophen 650 mg 11/01/18 17:45 11/03/18 14:30 Tylenol PO 650 mg Q6H PRN Administration Pain, Mild (1-3) Amlodipine Besylate 10 mg 11/03/18 16:00 Norvasc PO QDAY ATILIO Aspirin 81 mg 11/02/18 10:00 11/03/18 10:16 Baby Aspirin PO 81 mg QDAY ATILIO Administration Atorvastatin Calcium 40 mg 11/01/18 22:00 11/02/18 21:54 Lipitor PO 40 mg QHS ATILIO Administration Clopidogrel Bisulfate 75 mg 11/01/18 17:00 11/03/18 10:16 Plavix PO 75 mg QDAY ATILIO Administration Dextrose 50 ml 11/01/18 02:58 D50w (25gm) Syringe IV PRN PRN Hypoglycemia Hydralazine HCl 10 mg 11/01/18 03:00 11/03/18 13:18 Apresoline IV 10 mg Q4H PRN Administration Blood Pressure Hydrochlorothiazide 25 mg 11/03/18 16:00 Hctz PO QDAY ATILIO Sodium Chloride 1,000 mls @ 125 mls/hr 11/01/18 04:00 11/02/18 10:28 Nacl 0.9% 1000 Ml IV 125 mls/hr DIRECT ATILIO Administration Insulin Glargine 22 units 11/02/18 22:00 11/02/18 21:55 Lantus SUB-Q 22 units HS ATILIO Administration Insulin Human Regular 0 units 11/01/18 07:30 11/03/18 13:17 Humulin R SUB-Q 2 units AC ATILIO Administration Protocol Insulin Human Regular 0 units 11/01/18 22:00 11/02/18 21:54 Humulin R SUB-Q 6 units QHS ATILIO Administration Protocol Polyethylene Glycol 17 gm 11/02/18 15:50 11/02/18 17:01 Miralax 3350 PO 17 gm QDAY PRN Administration Constipation Promethazine HCl 50 mg 11/01/18 09:16 Phenergan LA Q6H PRN Nausea Senna/Docusate Sodium 2 tab 11/02/18 15:50 Senokot S PO Q12H PRN Laxative Effect Sodium Chloride 10 ml 11/01/18 16:13 11/02/18 21:54 Sodium Chloride Flush Syringe 10 Ml IV 10 ml PRN PRN Administration LINE FLUSH
[2018-11-03] MEDS: HCTZ PO SCH (16:47)
[2018-11-03] MEDS: NORVASC PO SCH (16:47)
[2018-11-03] MEDS: LANTUS SUB-Q SCH (21:58)
[2018-11-04] MEDS: TYLENOL PO PRN (00:01)
[2018-11-04 06:11] LABS: Basophils # (Auto) 0.1 K/mm3 (0.0-0.1); Basophils % (Auto) 0.8 % (0.0-1.8); Eosinophils # (Auto) 0.1 K/mm3 (0.0-0.4); Eosinophils % (Auto) 0.8 % (0.0-4.3); Hemoglobin 15.3 gm/dl (11.8-15.2); Lymphocytes # (Auto) 3.3 K/mm3 (1.2-5.4); Mean Corpuscular HGB Conc 33 % (32-34); Mean Corpuscular Volume 87 fl (84-94); Monocytes # (Auto) 0.6 K/mm3 (0.0-0.8); Monocytes % (Auto) 7.3 % (0.0-7.3); Platelet Count 229 K/mm3 (140-440); Red Blood Count 5.27 M/mm3 (3.65-5.03); Red Cell Distribution Width 13.9 % (13.2-15.2)
[2018-11-04 06:51] LABS: Alanine Aminotransferase 13 units/L (7-56); Albumin 4.1 g/dL (3.9-5); BUN/Creatinine Ratio 15; Blood Urea Nitrogen 12 mg/dL (9-20); Calcium 9.5 mg/dL (8.4-10.2); Hemolysis Index 5
[2018-11-04 07:01] LABS: Bilirubin,Direct < 0.2 mg/dL (0-0.2)
[2018-11-04] MEDS: HumuLIN R SUB-Q SCH ×4 (08:00→22:00)
[2018-11-04] MEDS: BABY ASPIRIN PO SCH (09:46)
[2018-11-04] MEDS: NORVASC PO SCH (09:47)
[2018-11-04] MEDS: HCTZ PO SCH (09:47)
[2018-11-04] MEDS: PLAVIX PO SCH (09:47)
--- NOTE | 2018-11-04 12:06 | Consultation ---
History of Present Illness - Reason for Consult Consult date: 11/04/18 carotid stenosis - History of Present Illness Patient with a history of diabetes, difficult to control hypertension, substance abuse presents with punctate cerebellar infarcts. Carotid ultrasound and CTA of the neck were performed and demonstrate minimal narrowing at the carotid bulbs bilaterally secondary to atherosclerotic disease. On examination, the patient's symptoms have improved since presentation. Past History Past Medical History: diabetes, hypertension Social history: smoking, other (Current cocaine and marijuana use) Family history: no significant family history Medications and Allergies Allergies Allergy/AdvReac Type Severity Reaction Status Date / Time No Known Allergies Allergy Verified 03/30/18 10:42 Home Medications Medication Instructions Recorded Confirmed Last Taken Type Amlodipine Besylate [Norvasc] 5 mg PO DAILY #30 tablet 10/18/18 11/01/18 Unknown Rx hydroCHLOROthiazide [HCTZ] 12.5 mg PO QDAY #30 capsule 10/18/18 11/01/18 Unknown Rx Ondansetron [Zofran Odt] 4 mg PO Q8HR PRN #20 tab.rapdis 10/24/18 11/01/18 Unknown Rx Promethazine [Phenergan SUPPOS] 50 mg MT Q6H PRN #30 supp.rect 10/24/18 11/01/18 Unknown Rx Active Meds: Active Medications Acetaminophen (Tylenol) 650 mg PO Q6H PRN PRN Reason: Pain, Mild (1-3) Last Admin: 11/04/18 00:01 Dose: 650 mg Documented by: Amlodipine Besylate (Norvasc) 10 mg PO QDAY [facility] Last Admin: 11/04/18 09:47 Dose: 10 mg Documented by: Aspirin (Baby Aspirin) 81 mg PO QDAY [facility] Last Admin: 11/04/18 09:46 Dose: 81 mg Documented by: Atorvastatin Calcium (Lipitor) 40 mg PO QHS [facility] Last Admin: 11/03/18 21:56 Dose: 40 mg Documented by: Clopidogrel Bisulfate (Plavix) 75 mg PO QDAY [facility] Last Admin: 11/04/18 09:47 Dose: 75 mg Documented by: Dextrose (D50w (25gm) Syringe) 50 ml IV PRN PRN PRN Reason: Hypoglycemia Hydralazine HCl (Apresoline) 10 mg IV Q4H PRN PRN Reason: Blood Pressure Last Admin: 11/03/18 22:02 Dose: 10 mg Documented by: Hydrochlorothiazide (Hctz) 25 mg PO QDAY [facility] Last Admin: 11/04/18 09:47 Dose: 25 mg Documented by: Insulin Glargine (Lantus) 22 units SUB-Q [facility] Last Admin: 11/03/18 21:58 Dose: 22 units Documented by: Insulin Human Regular (Humulin R) 0 units SUB-Q [facility]; Protocol Last Admin: 11/04/18 08:00 Dose: 2 units Documented by: Insulin Human Regular ([facility]ulin R) [facility]; Protocol Last Admin: 11/03/18 21:57 Dose: 4 units Documented by: Polyethylene Glycol (Miralax 3350) 17 gm PO QDAY PRN PRN Reason: Constipation Last Admin: 11/02/18 17:01 Dose: 17 gm Documented by: Promethazine HCl (Phenergan) 50 mg MT Q6H PRN PRN Reason: Nausea Senna/Docusate Sodium (Senokot S) 2 tab PO Q12H PRN PRN Reason: Laxative Effect Sodium Chloride (Sodium Chloride Flush Syringe 10 Ml) 10 ml IV PRN PRN PRN Reason: LINE FLUSH Last Admin: 11/02/18 21:54 Dose: 10 ml Documented by: Review of Systems All systems: negative Exam - Constitutional Vitals: Temp Pulse Resp BP Pulse Ox 98.3 F 98 H 20 160/104 99 11/04/18 11:53 11/04/18 11:53 11/04/18 11:53 11/04/18 11:53 11/04/18 11:53 General appearance: Present: no acute distress - EENT Eyes: Present: EOM intact ENT: hearing intact - Neck Neck: Present: supple, normal ROM - Respiratory Respiratory effort: normal - Abdominal General gastrointestinal: Present: deferred Male genitourinary: Present: deferred - Rectal Rectal Exam: deferred - Psychiatric Psychiatric: appropriate mood/affect, cooperative Results - Labs CBC & Chem 7: 11/04/18 04:06 11/04/18 04:06 Labs: Abnormal lab results 11/03/18 11/03/18 11/03/18 Range/Units 12:32 16:30 20:50 RBC (3.65-5.03) M/mm3 Hgb (11.8-15.2) gm/dl Hct (35.5-45.6) % Lymph % (Auto) (13.4-35.0) % Glucose (75-100) mg/dL POC Glucose 180 H 200 H 273 H (70-105) Phosphorus (2.5-4.5) mg/dL 11/04/18 11/04/18 11/04/18 Range/Units 04:06 04:06 07:44 RBC 5.27 H (3.65-5.03) M/mm3 Hgb 15.3 H (11.8-15.2) gm/dl Hct 46.0 H (35.5-45.6) % Lymph % (Auto) 41.0 H (13.4-35.0) % Glucose 146 H (75-100) mg/dL POC Glucose 152 H (70-105) Phosphorus 4.70 H (2.5-4.5) mg/dL - Imaging and Cardiology CT Scan - head: image reviewed (CTA of neck and head) Venous US: image reviewed (carotid ultrasound) Assessment and Plan Patient with mild carotid artery stenosis. He will follow-up in our office in 4 weeks following discharge. Ultimately, the patient will have yearly carotid ultrasounds to document stability of these lesions. Given the patient's difficult to control hypertension, a renal arterial ultrasound will be performed to rule out renal artery stenosis.
--- NOTE | 2018-11-04 12:37 | Discharge Summary ---
Providers - Providers Date of Admission: 11/01/18 02:52 Attending physician: EDER PUTNAM MD 11/01/18 06:00 Consult to Physician [CONS] Routine Comment: Consulting Provider: DARREN ANDERSEN Physician Instructions: Reason For Exam: ATAXIA AND DIZZINESS Physical Therapy Evaluation and Treat [CONS] Routine Comment: Reason For Exam: ATAXIA AND DIZZINESS 11/01/18 13:28 Occupational Therapy Evaluate and Treat [CONS] Routine Comment: Reason For Exam: unsteady; dizzy 11/01/18 16:14 Occupational Therapy Evaluate and Treat [CONS] Routine Comment: Reason For Exam: Neuro deficits Physical Therapy Evaluation and Treat [CONS] Routine Comment: Reason For Exam: Neuro deficits 11/03/18 13:08 Consult to Physician [CONS] Routine Comment: Consulting Provider: GEENA OCHOA Physician Instructions: Reason For Exam: cva and carotid stenosis Primary care physician: [facility] Hospitalization Condition: Fair Hospital course: 48-year-old man who presented with elevated blood pressure and dizziness, he also complained of unsteady gaits, his blood pressure was not being controlled despite using his blood pressure meds at home, he thinks that one of his legs felt weak. Acute /subacute cerebella CVA Neurology input appreciated, optimize meds for secondary prevention -CT angiogram shows ICA stenosis, vascular surgery consult, echo shows slightly reduced EF of 45%, but no septal defect and patient will need outpatient follow- up with cardiology, as will need a 30 day monitor per neurologist -Doppler of the kidneys was performed And was negative for renal artery stenosis Hypertensive urgency Optimized BP meds Type 2 diabetes with persistent hyperglycemia A1c 9.4, patient was initially treated with insulin and then oral meds were optimized Cocaine and marijuana abuse Counseled about tobacco cessation greater than 10 minutes Preventive health management counseling performed 17 minutes X Ambulatory dysfunction PT/OT, plan to discharge with home PT DVT prophylaxis ME: SCDs Disposition: [id number]/TX-06 HOME [facility]ER [facility] Time spent for discharge: 33 mins Core Measure Documentation - Palliative Care Palliative Care/ Comfort Measures: Not Applicable - Core Measures Any of the following diagnoses?: heart failure, stroke - Heart Failure Discharge Requirements NICOLÁS/ARB for LVSD if EF <40%: Yes Beta rafa at discharge: Yes - Stroke Discharge Requirements Statin for LDL = or >70 mg/dl on DC: Yes Anticoag for atrial fib/atrial flutter: Not Applicable Antithrombotic for ischemic stroke: Yes Exam - Physical Exam Narrative exam: General.: Appears well, no distress, nontoxic HEENT: Moist mucous membranes, extraocular muscles intact, no lymphadenopathy Neck: supple Cardiac: S1-S2 heard Lungs: clear to auscultation bilaterally Abdomen: soft , nontender, nondistended, bowel sounds positive Extremities: no edema clubbing or cyanosis Skin: no rash or lesions Neurologic: no gross focal deficits, unsteady gait Psych: calm, and cooperative - Constitutional Vitals: Temp Pulse Resp BP Pulse Ox 98.3 F 98 H 20 160/104 99 11/04/18 11:53 11/04/18 11:53 11/04/18 11:53 11/04/18 11:53 11/04/18 11:53 Plan Additional Instructions: Please make appointment with a grout worker, ([facility]). So that they can provide you with a 30 day heart monitor Follow up with: FIDELINA SAINZALICEVILLE MD ZHANG [Primary Care Provider] - 3-5 Days HARIKA MORA MD [Staff Physician] - 7 Days GEENA DELUCA MD [Staff Physician] - 7 Days Prescriptions: AtorvaSTATin [Lipitor] 40 mg PO QHS #30 tablet Aspirin EC 81 mg PO QDAY #30 tablet. Carvedilol [Coreg] 3.125 mg PO BID #60 tablet metFORMIN [Glucophage] 1,000 mg PO BIDDIAB #120 tablet glipiZIDE [Glucotrol] 10 mg PO BID #60 tab glipiZIDE [Glucotrol] 10 mg PO BIDDIAB #60 tablet hydroCHLOROthiazide [HCTZ] 25 mg PO QDAY #30 tablet Polyethylene Glycol 3350 [Miralax 3350] 17 gm PO QDAY PRN #30 powd.pack PRN Reason: Constipation amLODIPine [Norvasc] 10 mg PO QDAY #30 tablet Clopidogrel [Plavix] 75 mg PO QDAY #30 tablet Other Discharge Orders: Glucometer (Amb) Location: None Selected Glucometer supplies[Amb] Location: None Selected
[2018-11-04] MEDS ORDERED: GLUCOTROL PO NR (13:05)
[2018-11-04] MEDS ORDERED: GLUCOPHAGE PO NR (13:05)
--- NOTE | 2018-11-04 13:50 | Progress Note ---
Assessment and Plan Assessment and plan: 48-year-old man who presented with elevated blood pressure and dizziness, he also complained of unsteady gaits, his blood pressure was not being controlled despite using his blood pressure meds at home, he thinks that one of his legs felt weak. Acute /subacute cerebella CVA Neurology input appreciated, optimize meds for secondary prevention -CT angiogram shows ICA stenosis, vascular surgery consult appreciated, echo shows slightly reduced EF of 45%, but no septal defect and patient will need outpatient follow-up with cardiology, as will need a 30 day monitor her neurologist -renal doppler to r/o Renal artery stenosis Compensated systolic chf, chronic optimize meds Hypertensive urgency Optimize BP meds Type 2 diabetes with persistent hyperglycemia A1c 9.4, optimize insulins, goal glucose is 140-180 Cocaine and marijuana abuse Counseled about tobacco cessation greater than 10 minutes Preventive health management counseling performed 17 minutes X Ambulatory dysfunction PT/OT, plan to discharge her home PT DVT prophylaxis ME: SCDs History Interval history: Continues to complain of unsteady gait Review of systems Constitutional: No fevers, no malaise, no joint pains CVS: No chest pain, no orthopnea, no dyspnea on exertion, no pedal edema GI: No abdominal pain, no diarrhea, no vomiting, no constipation Respiratory: no wheezing, no coughing Hospitalist Physical - Physical exam Narrative exam: General.: Appears well, no distress, nontoxic HEENT: Moist mucous membranes, extraocular muscles intact, no lymphadenopathy Neck: supple Cardiac: S1-S2 heard Lungs: clear to auscultation bilaterally Abdomen: soft , nontender, nondistended, bowel sounds positive Extremities: no edema clubbing or cyanosis Skin: no rash or lesions Neurologic: no gross focal deficits, unsteady gait Psych: calm, and cooperative - Constitutional Vitals: Temp Pulse Resp BP Pulse Ox 98.3 F 98 H 20 160/104 99 11/04/18 11:53 11/04/18 11:53 11/04/18 11:53 11/04/18 11:53 11/04/18 11:53 General appearance: Present: no acute distress Results - Labs CBC & Chem 7: 11/04/18 04:06 11/04/18 04:06 Labs: Laboratory Last Values WBC 8.0 K/mm3 (4.5-11.0) 11/04/18 04:06 RBC 5.27 M/mm3 (3.65-5.03) H 11/04/18 04:06 Hgb 15.3 gm/dl (11.8-15.2) H 11/04/18 04:06 Hct 46.0 % (35.5-45.6) H 11/04/18 04:06 MCV 87 fl (84-94) 11/04/18 04:06 MCH 29 pg (28-32) 11/04/18 04:06 MCHC 33 % (32-34) 11/04/18 04:06 RDW 13.9 % (13.2-15.2) 11/04/18 04:06 Plt Count 229 K/mm3 (140-440) 11/04/18 04:06 Lymph % (Auto) 41.0 % (13.4-35.0) H 11/04/18 04:06 [place] % (Auto) 7.3 % (0.0-7.3) 11/04/18 04:06 Eos % (Auto) 0.8 % (0.0-4.3) 11/04/18 04:06 Baso % (Auto) 0.8 % (0.0-1.8) 11/04/18 04:06 Lymph # 3.3 K/mm3 (1.2-5.4) 11/04/18 04:06 [place] # 0.6 K/mm3 (0.0-0.8) 11/04/18 04:06 Eos # 0.1 K/mm3 (0.0-0.4) 11/04/18 04:06 Baso # 0.1 K/mm3 (0.0-0.1) 11/04/18 04:06 Seg Neutrophils % 50.1 % (40.0-70.0) 11/04/18 04:06 Seg Neutrophils # 4.0 K/mm3 (1.8-7.7) 11/04/18 04:06 Sodium 140 mmol/L (137-145) D 11/04/18 04:06 Potassium 3.8 mmol/L (3.6-5.0) 11/04/18 04:06 Chloride 100.6 mmol/L (98-107) 11/04/18 04:06 Carbon Dioxide 26 mmol/L (22-30) 11/04/18 04:06 17 mmol/L 11/04/18 04:06 BUN 12 mg/dL (9-20) 11/04/18 04:06 0.8 mg/dL (0.8-1.5) 11/04/18 04:06 Estimated GFR > 60 ml/min 11/04/18 04:06 15 % 11/04/18 04:06 Glucose 146 mg/dL (75-100) H 11/04/18 04:06 POC Glucose 182 (70-105) H 11/04/18 11:58 9.4 % (4-6) H 11/02/18 04:41 Calcium 9.5 mg/dL (8.4-10.2) 11/04/18 04:06 Phosphorus 4.70 mg/dL (2.5-4.5) H 11/04/18 04:06 Magnesium 1.80 mg/dL (1.7-2.3) 11/04/18 04:06 0.40 mg/dL (0.1-1.2) 11/04/18 04:06 < 0.2 mg/dL (0-0.2) 11/04/18 04:06 0.2 mg/dL 11/04/18 04:06 AST 14 units/L (5-40) 11/04/18 04:06 ALT 13 units/L (7-56) 11/04/18 04:06 75 units/L (35-129) 11/04/18 04:06 7.4 g/dL (6.3-8.2) 11/04/18 04:06 4.1 g/dL (3.9-5) 11/04/18 04:06 1.2 % 11/04/18 04:06 Triglycerides 127 mg/dL (2-149) 11/02/18 04:41 Cholesterol 177 mg/dL (50-199) 11/02/18 04:41 120 mg/dL (50-130) 11/02/18 04:41 43 mg/dL (40-59) 11/02/18 04:41 4.11 % 11/02/18 04:41 Active Medications - Current Medications Current Medications: Generic Name Dose Route Start Last Admin Trade Name Freq PRN Reason Stop Dose Admin Acetaminophen 650 mg 11/01/18 17:45 11/04/18 00:01 Tylenol PO 650 mg Q6H PRN Administration Pain, Mild (1-3) Amlodipine Besylate 10 mg 11/03/18 16:00 11/04/18 09:47 Norvasc PO 10 mg QDAY ATILIO Administration Aspirin 81 mg 11/02/18 10:00 11/04/18 09:46 Baby Aspirin PO 81 mg QDAY ATILIO Administration Atorvastatin Calcium 40 mg 11/01/18 22:00 11/03/18 21:56 Lipitor PO 40 mg QHS ATILIO Administration Clopidogrel Bisulfate 75 mg 11/01/18 17:00 11/04/18 09:47 Plavix PO 75 mg QDAY ATILIO Administration Dextrose 50 ml 11/01/18 02:58 D50w (25gm) Syringe IV PRN PRN Hypoglycemia Glipizide 10 mg 11/04/18 17:00 Glucotrol PO BIDDIAB ATILIO Glipizide 5 mg 11/04/18 13:05 Glucotrol PO 11/04/18 16:00 ONCE NR Hydralazine HCl 10 mg 11/01/18 03:00 11/03/18 22:02 Apresoline IV 10 mg Q4H PRN Administration Blood Pressure Hydrochlorothiazide 25 mg 11/03/18 16:00 11/04/18 09:47 Hctz PO 25 mg QDAY ATILIO Administration Insulin Glargine 10 units 11/04/18 22:00 Lantus SUB-Q [facility] Insulin Human Regular 0 units 11/01/18 07:30 11/04/18 12:00 Humulin R SUB-Q 2 units [facility] Administration Protocol Insulin Human Regular 0 units 11/01/18 22:00 11/03/18 21:57 Humulin R SUB-Q 4 units QHS [facility] Administration Protocol Metformin HCl 1,000 mg 11/04/18 17:00 Glucophage PO BIDDIAB ATILIO Metformin HCl 500 mg 11/04/18 13:05 Glucophage PO 11/04/18 16:00 ONCE NR Polyethylene Glycol 17 gm 11/02/18 15:50 11/02/18 17:01 Miralax 3350 PO 17 gm QDAY PRN Administration Constipation Promethazine HCl 50 mg 11/01/18 09:16 Phenergan MS Q6H PRN Nausea Senna/Docusate Sodium 2 tab 11/02/18 15:50 Senokot S PO Q12H PRN Laxative Effect Sodium Chloride 10 ml 11/01/18 16:13 11/02/18 21:54 Sodium Chloride Flush Syringe 10 Ml IV 10 ml PRN PRN Administration LINE FLUSH
[2018-11-04] MEDS: GLUCOTROL PO SCH (17:42)
[2018-11-04] MEDS: GLUCOPHAGE PO SCH (17:42)
[2018-11-04] MEDS ORDERED: LANTUS SUB-Q SCH (22:00)
[2018-11-05 04:29] VITALS: BP 147/99
[2018-11-05] MEDS: GLUCOTROL PO SCH (09:00)
[2018-11-05] MEDS: GLUCOPHAGE PO SCH (09:00)
[2018-11-05] MEDS: HumuLIN R SUB-Q SCH (09:39)
[2018-11-05] MEDS: NORVASC PO SCH (09:42)
[2018-11-05] MEDS: BABY ASPIRIN PO SCH (09:42)
[2018-11-05] MEDS: PLAVIX PO SCH (09:42)
[2018-11-05] MEDS: HCTZ PO SCH (09:42)
--- NOTE | 2018-11-05 10:02 | Vascular Lab Report ---
RENAL ARTERIAL DOPPLER ULTRASOUND HISTORY: Difficult to control hypertension, noncompliance with hypertensive medications, diabetic, sm oker COMPARISON: None. TECHNIQUE: Routine renal arterial doppler ultrasound performed using grayscale, color and pulsed dopp ler. FINDINGS: Abdominal Aorta: No significant abnormality. Suprarenal velocity is 75 cm/s. Right kidney: No significant abnormality. No hydronephrosis Kidney measures 11.2 cm. Resistive index: Less than 0.7 Right renal artery: Peak systolic velocity of 168 cm/s with [id number]-jp-[id number] ratio of less than 3.5 Right renal vein: Patent. Left kidney: No significant abnormality. No hydronephrosis. Kidney measures 11.6 cm. Resistive index: Less than 0.7 Left renal artery: Peak systolic velocity of 166 cm/s with qhgze-aw-[id number] ratio of less than 3.5 Left renal vein: Patent. Additional findings: None. IMPRESSION: No significant abnormality. Signer Name: Francisco Aquino Jr, MD Signed: 11/05/2018 9:57 AM Workstation Name: [id number]
== END 2018-11-05 14:04 | disposition home health service (06) | DRG 65 ==
LOC: ED 22:01 → 4A 11-01 02:52
PROVIDERS: ADMIT Internal Medicine; ATTEND Internal Medicine
DX: I63.9 Cerebral infarction, unspecified (principal); E87.1 Hypo-osmolality and hyponatremia; R26.81 Unsteadiness on feet; I16.0 Hypertensive urgency; E11.65 Type 2 diabetes mellitus with hyperglycemia; F14.10 Cocaine abuse, uncomplicated; F12.10 Cannabis abuse, uncomplicated; I10 Essential (primary) hypertension; F17.210 Nicotine dependence, cigarettes, uncomplicated; H55.00 Unspecified nystagmus; I65.29 Occlusion and stenosis of unspecified carotid artery; Z71.51 Drug abuse counseling and surveillance of drug abuser; Z91.14 Patient's other noncompliance with medication regimen
CPT/HCPCS: 36415; 70450; 70496; 70498; 70544; 70547; 70551; 80048; 80061; 80076; 82962; 83036; 83735; 84100; 85025; 93005; 93010; 93306; 93880; 93975; 96372; 99291; 99406; G0378; A9270-GY; J0360; J1815; J7030; Q9967